=== PATIENT | male | born 1985 | race Caucasian/White ===

== ENCOUNTER 2017-11-28 17:22 | Emergency (ER) | payer OTHER ==
[~2017-11-28] VITALS: Ht 175.3 cm; Wt 108.4 kg
[~2017-11-28 17:22] MED LIST: CEPH500C3 PO; VICO7.5T PO; Z.0.NO CURRENT MEDS
[2017-11-28 17:26] VITALS: BP 189/91; PULSE 127; RESP 16; TEMP 100.2; O2SAT 96
--- NOTE | 2017-11-28 17:36 | PD ---
HPI Chief Complaint: Cold / Flu Symptoms Time Seen by Provider: 17:30 Travel History International Travel<30 days: No Contact w/Intl Traveler<30days: No Traveled to known affect area: No History of Present Illness HPI 32-year-old male presents for evaluation. For the past 2 days he has had sore throat, cough, congestion, headache, fevers, chills, myalgias. The cough is productive of yellow sputum. He has not been using any medication for symptom relief. Denies recent travel, rash. Denies sick contacts. He has no other complaints at this time. [facility] Past Medical History Medical History: Denies Significant Hx Hx Anticoagulant Therapy: No Diabetes: No Diminished Hearing: No Immunizations Current: No Tetanus Vaccination: < 5 Years Influenza Vaccination: Yes Social History Alcohol Use: No Tobacco Use: No Substance Use: No Allergies-Medications (Allergen,Severity, Reaction): Coded Allergies: No Known Allergies (Verified Adverse Reaction, Unknown, 11/28/17) Reported Meds & Prescriptions Reported Meds & Active Scripts Active Zofran (Ondansetron HCl) 4 Mg Tab 4 Mg PO Q6HR PRN Tamiflu (Oseltamivir Phosphate) 75 Mg Cap 75 Mg PO BID 5 Days Review of Systems Except as stated in HPI: all other systems reviewed are Neg Physical Exam Narrative GENERAL: Well-developed well-nourished male in no acute distress SKIN: Warm and dry. HEAD: Atraumatic. Normocephalic. EYES: Pupils equal and round. No scleral icterus. No injection or drainage. ENT: No nasal bleeding or discharge. Mucous membranes pink and moist. The oropharynx is mildly erythematous. NECK: Trachea midline. No JVD. No lymphadenopathy. Neck supple full range of motion. CARDIOVASCULAR: Regular rate and rhythm. No murmur appreciated. RESPIRATORY: No accessory muscle use. Clear to auscultation. Breath sounds equal bilaterally. GASTROINTESTINAL: Abdomen soft, non-tender, nondistended. Hepatic and splenic margins not palpable. Data Data Last Documented VS Vital Signs Date Time Temp Pulse Resp B/P (MAP) Pulse Ox O2 Delivery O2 Flow Rate FiO2 11/28/17 19:51 107 17 97 Room Air 11/28/17 17:26 100.2 Orders Orders Ibuprofen (Motrin) (11/28/17 17:45) Influenzae A/B Antigen (11/28/17 17:34) Group A Rapid Strep Screen (11/28/17 17:34) Strep Culture (Group A) (11/28/17 17:39) Ondansetron Odt (Zofran Odt) (11/28/17 18:15) Acetaminophen (Tylenol) (11/28/17 19:00) Chest, Single Ap (11/28/17 ) Basic Metabolic Panel (Bmp) (11/28/17 18:56) Complete Blood Count With Diff (11/28/17 18:56) Sodium Chlor 0.9% 1000 Ml Inj (Ns 1000 M (11/28/17 18:56) Potassium Chloride (Kcl) (11/28/17 19:45) Ed Discharge Order (11/28/17 19:54) Labs Laboratory Tests Test 11/28/17 19:08 White Blood Count 8.9 TH/MM3 Red Blood Count 5.04 MIL/MM3 Hemoglobin 13.4 GM/DL Hematocrit 40.0 % Mean Corpuscular Volume 79.4 FL Mean Corpuscular Hemoglobin 26.6 PG Mean Corpuscular Hemoglobin Concent 33.5 % Red Cell Distribution Width 12.9 % Platelet Count 239 TH/MM3 Mean Platelet Volume 8.5 FL Neutrophils (%) (Auto) 76.8 % Lymphocytes (%) (Auto) 9.6 % Monocytes (%) (Auto) 13.2 % Eosinophils (%) (Auto) 0.1 % Basophils (%) (Auto) 0.3 % Neutrophils # (Auto) 6.8 TH/MM3 Lymphocytes # (Auto) 0.9 TH/MM3 Monocytes # (Auto) 1.2 TH/MM3 Eosinophils # (Auto) 0.0 TH/MM3 Basophils # (Auto) 0.0 TH/MM3 CBC Comment DIFF FINAL Differential Comment Blood Urea Nitrogen 13 MG/DL Creatinine 0.91 MG/DL Random Glucose 113 MG/DL Calcium Level 8.3 MG/DL Sodium Level 134 MEQ/L Potassium Level 3.3 MEQ/L Chloride Level 100 MEQ/L Carbon Dioxide Level 26.5 MEQ/L Anion Gap 8 MEQ/L Estimat Glomerular Filtration Rate 97 ML/MIN MDM Medical Decision Making Medical Screen Exam Complete: Yes Emergency Medical Condition: Yes Medical Record Reviewed: Yes Differential Diagnosis Pharyngitis, tonsillitis, influenza, bronchitis, pneumonia Narrative Course 32-year-old male with 2 days of cough, congestion, sore throat, fevers, chills, myalgias. On examination he has low-grade fever with resultant tachycardia. The patient will be given ibuprofen, oral fluids. Plan is for rapid strep screen, influenza antigen. Positive for influenza A. Upon recheck the patient was still tachycardic with a heart rate of 120. He reports that he has had poor appetite today with 2 episodes of emesis. He was given Zofran and able to orally hydrate some. His pulse oximetry was started by the nurses 95%. His lungs are clear to auscultation on repeat examination is pulse oximetry is 97%. The patient will be given IV fluids, oral Tylenol, CBC and BMP have been ordered, chest x-ray is ordered. Upon reexamination his heart rate has improved to 109. He feels significantly improved. He has been tolerating orally during his hospital stay. His CBC reveals a CBC count of 8.9. His BMP reveals a potassium of 3.3, oral potassium chloride ordered. His chest x-ray is normal. The patient will be discharged with Tamiflu and Zofran. Diagnosis Primary Impression: Influenza A Departure Forms: Tests/Procedures, Work Release Enter return to work date: Dec 01, 2017 Additional Instructions: Medications prescribed. Stay well hydrated well-nourished. Tylenol or Motrin for fever. Return for any emergent medical conditions. Med/Other Pt SpecificInfo: Prescription(s) given Scripts Ondansetron (Zofran) 4 Mg Tab 4 MG PO Q6HR Y for NAUSEA OR VOMITING, #15 TAB 0 Refills Prov: Jeovany Donnelly MD 11/28/17 Oseltamivir (Tamiflu) 75 Mg Cap 75 MG PO BID for Mgmt Viral Infection for 5 Days, #10 CAP 0 Refills Prov: Jeovany Donnelly MD 11/28/17 Disposition: 01 DISCHARGE HOME Condition: Stable Jerry Ely Nov 28, 2017 17:36
[2017-11-28] MEDS ORDERED: IBUPROFEN 800 MG TAB PO ONE (17:45)
[2017-11-28] MEDS ORDERED: OSEL75 PO ×2 (18:03→18:58)
[2017-11-28] MEDS ORDERED: ONDANSETRON ODT 4 MG TAB PO ONE (18:15)
[2017-11-28 18:25] VITALS: BP 129/74; PULSE 123; RESP 18; O2SAT 92
[2017-11-28 18:53] VITALS: O2SAT 97
[2017-11-28] MEDS ORDERED: SODIUM CHLOR 0.9% 1000 ML INJ 1,000 ML IV SCH (18:56)
[2017-11-28] MEDS ORDERED: ZOFR4TAB PO (18:58)
[2017-11-28] MEDS ORDERED: ACETAMINOPHEN 325 MG TAB PO ONE (19:00)
[2017-11-28 19:19] LABS: AUTOMATED NEUTROPHIL # 6.8 TH/MM3 (1.8-7.7); BASOPHIL % 0.3 % (0.0-2.0); EOSINOPHIL % 0.1 % (0.0-4.0); HEMOGLOBIN 13.4 GM/DL (13.0-17.0); LYMPH % 9.6 % (9.0-44.0); LYMPHOCYTE # 0.9 TH/MM3 (1.0-4.8); MEAN CELL VOLUME 79.4 FL (80.0-100.0); MEAN CORPUSCULAR HEMOGLOBIN 26.6 PG (27.0-34.0); MEAN CORPUSCULAR HGB CONC 33.5 % (32.0-36.0); MEAN PLATELET VOLUME 8.5 FL (7.0-11.0); MONO % 13.2 % (0.0-8.0); MONOCYTE # 1.2 TH/MM3 (0-0.9); NEUT % 76.8 % (16.0-70.0); PLATELET COUNT 239 TH/MM3 (150-450); RED BLOOD COUNT 5.04 MIL/MM3 (4.50-5.90); RED CELL DISTRIBUTION WIDTH 12.9 % (11.6-17.2); WHITE BLOOD COUNT 8.9 TH/MM3 (4.0-11.0)
[2017-11-28 19:32] LABS: CALCIUM 8.3 MG/DL (8.5-10.1)
[2017-11-28 19:33] LABS: BICARBONATE 26.5 MEQ/L (21.0-32.0)
[2017-11-28 19:36] LABS: CREATININE 0.91 MG/DL (0.60-1.30)
[2017-11-28] MEDS ORDERED: POTASSIUM CHLORIDE 20 MEQ CONTROLLED RELEASE TAB PO ONE (19:45)
--- NOTE | 2017-11-28 19:50 | RADRPT ---
EXAM DATE/TIME: 11/28/2017 19:23 [facility] COMPARISON: No previous studies available for comparison. INDICATIONS : Cough and flu symptoms for 2 days. MEDICAL HISTORY : None. SURGICAL HISTORY : None. ENCOUNTER: Initial ACUITY: 2 days PAIN SCORE: 1/10 LOCATION: Bilateral chest FINDINGS: A single view of the chest demonstrates the lungs to be symmetrically aerated without evidence of mas s, infiltrate or effusion. The cardiomediastinal contours are unremarkable. Osseous structures are intact. CONCLUSION: No acute disease. Feliciano Redd Jr., MD on November 28, 2017 at 19:47 Board Certified Radiologist. This report was verified electronically.
[2017-11-28 19:51] VITALS: PULSE 107; RESP 17; O2SAT 97
== END 2017-11-28 20:15 | disposition home or self-care (01) ==
LOC: PHEFT 17:22
DX: J10.1 Influenza due to other identified influenza virus with other respiratory manifestations (principal)
CPT/HCPCS: 71045; 80048; 85025; 87081; 87804; 87880; 99284; J7030